=== PATIENT | male | born 1990 | race Caucasian/White ===

== ENCOUNTER 2018-08-11 21:17 | Emergency (ER) | payer SELFPAY ==
[~2018-08-11] VITALS: Ht 177.8 cm; Wt 110.2 kg
[2018-08-11 21:30] VITALS: Ht 177.8 cm; Wt 110.2 kg
[2018-08-11 22:04] LABS: BASOPHIL % 0.7 % (0-2); PLATELET COUNT 323 x10^3mcL (130-400); RED CELL DISTRIBUTION WIDTH 13.6 % (11.5-14.5)
[2018-08-11 22:07] LABS: CALCIUM 8.8 mg/dL (8.5-10.1); CARBON DIOXIDE 28.8 mmol/L (21-32); CHLORIDE SERUM 103 mmol/L (98-107); CREATININE SERUM 1.1 mg/dL (0.7-1.3); GFR1 > 60 mL/min; GLUCOSE SERUM 101 mg/dL (74-106); POTASSIUM SERUM 3.6 mmol/L (3.5-5.1); SODIUM SERUM 140 mmol/L (136-145)
[2018-08-11 22:14] LABS: ALBUMIN 4.2 g/dL (3.4-5.0); ALKALINE PHOSPHATASE 99 U/L (46-116); ALT/SGPT 51 U/L (16-63); AMYLASE 54 U/L (25-115); AST/SGOT 27 U/L (15-37); BILIRUBIN TOTAL 0.46 mg/dL (0.20-1.00); LIPASE 135 IU/L (73-393); TOTAL PROTEIN, SERUM 8.1 g/dL (6.4-8.2)
[2018-08-11 23:26] VITALS: BP 124/74
== END 2018-08-11 23:26 | disposition home or self-care (01) ==
LOC: ED 21:17
PROVIDERS: Emergency Medicine
DX: N23 Unspecified renal colic (principal); R11.2 Nausea with vomiting, unspecified
CPT/HCPCS: J1885; J2405; J7030

== ENCOUNTER 2018-12-16 21:45 | Emergency (ER) | payer SELFPAY ==
[~2018-12-16] VITALS: Ht 177.8 cm; Wt 102.5 kg
[2018-12-16 22:15] VITALS: Ht 177.8 cm; Wt 102.5 kg
[2018-12-16 23:56] LABS: BASOPHIL % 0.5 % (0-2); PLATELET COUNT 304 x10^3mcL (130-400); RED CELL DISTRIBUTION WIDTH 13.3 % (11.5-14.5)
[2018-12-17 00:12] LABS: ALKALINE PHOSPHATASE 88 U/L (46-116); ALT/SGPT 27 U/L (16-63); AST/SGOT 17 U/L (15-37); BILIRUBIN TOTAL 0.3 mg/dL (0.20-1.00); CALCIUM 8.8 mg/dL (8.5-10.1); CARBON DIOXIDE 27.4 mmol/L (21-32); CHLORIDE SERUM 102 mmol/L (98-107); CREATININE SERUM 1.2 mg/dL (0.7-1.3); GFR1 > 60 mL/min; GLUCOSE SERUM 96 mg/dL (74-106); POTASSIUM SERUM 3.9 mmol/L (3.5-5.1); SODIUM SERUM 137 mmol/L (136-145); TOTAL PROTEIN, SERUM 7.4 g/dL (6.4-8.2)
[2018-12-17 00:56] VITALS: BP 128/71
== END 2018-12-17 00:56 | disposition home or self-care (01) ==
LOC: ED 21:45
PROVIDERS: Emergency Medicine
DX: H83.09 Labyrinthitis, unspecified ear (principal)
CPT/HCPCS: 36415

== ENCOUNTER 2019-08-14 11:20 | Emergency (ER) | payer MEDICAID ==
[~2019-08-14] VITALS: Ht 177.8 cm; Wt 107.0 kg
[2019-08-14 11:28] VITALS: Ht 177.8 cm; Wt 107.0 kg
[2019-08-14 12:27] LABS: BASOPHIL % 0.3 % (0-2); PLATELET COUNT 252 x10^3mcL (130-400); RED CELL DISTRIBUTION WIDTH 13.6 % (11.5-14.5)
[2019-08-14 12:35] LABS: CALCIUM 8.9 mg/dL (8.5-10.1); CHLORIDE SERUM 103 mmol/L (98-107); CREATININE SERUM 0.9 mg/dL (0.7-1.3); GFR1 > 60 mL/min; GLUCOSE SERUM 92 mg/dL (74-106); POTASSIUM SERUM 4.3 mmol/L (3.5-5.1); SODIUM SERUM 139 mmol/L (136-145)
[2019-08-14 12:40] LABS: ALBUMIN 4.1 g/dL (3.4-5.0); ALKALINE PHOSPHATASE 104 U/L (46-116); ALT/SGPT 80 U/L (16-63); AST/SGOT 43 U/L (15-37); BILIRUBIN TOTAL 0.29 mg/dL (0.20-1.00); LIPASE 213 IU/L (73-393); TOTAL PROTEIN, SERUM 7.9 g/dL (6.4-8.2)
[2019-08-14 14:04] VITALS: BP 134/85
== END 2019-08-14 14:04 | disposition home or self-care (01) ==
LOC: ED 11:20
PROVIDERS: Emergency Medicine
DX: K29.00 Acute gastritis without bleeding (principal); Z87.442 Personal history of urinary calculi; Z98.890 Other specified postprocedural states
CPT/HCPCS: 36415; Q0092

== ENCOUNTER 2019-09-28 16:24 | Emergency (ER) | payer MEDICAID ==
[~2019-09-28] VITALS: Ht 177.8 cm; Wt 107.5 kg
[2019-09-28 16:43] VITALS: Ht 177.8 cm; Wt 107.5 kg
[2019-09-28 17:47] VITALS: BP 140/75
== END 2019-09-28 17:47 | disposition home or self-care (01) ==
LOC: ED 16:24
DX: R10.30 Lower abdominal pain, unspecified (principal); Z87.442 Personal history of urinary calculi; Z98.890 Other specified postprocedural states

== ENCOUNTER 2019-10-18 15:08 | Emergency (ER) | payer OTHER ==
[~2019-10-18] VITALS: Ht 172.7 cm; Wt 111.6 kg
[2019-10-18 15:11] VITALS: Ht 172.7 cm; Wt 111.6 kg
[2019-10-18 18:18] VITALS: BP 129/72
== END 2019-10-18 18:18 | disposition home or self-care (01) ==
LOC: ED 15:08
DX: M54.42 Lumbago with sciatica, left side (principal); Z87.442 Personal history of urinary calculi; Z98.890 Other specified postprocedural states
CPT/HCPCS: 99406

== ENCOUNTER 2019-11-11 12:21 | Emergency (ER) | payer OTHER ==
[2019-11-11 13:31] VITALS: Ht 167.6 cm
[2019-11-11 14:10] LABS: UA SPECIFIC GRAVITY 1.015 (1.005-1.035); microscopic required? YES; urine erythrocyte NEGATIVE (NEGATIVE)
[2019-11-11 17:35] VITALS: BP 109/89
== END 2019-11-11 17:36 | disposition home or self-care (01) ==
LOC: ED 12:21
PROVIDERS: Emergency Medicine
DX: M54.9 Dorsalgia, unspecified (principal); R10.9 Unspecified abdominal pain; Z87.442 Personal history of urinary calculi
CPT/HCPCS: J1885

== ENCOUNTER 2019-12-11 10:00 | Emergency (ER) | payer OTHER ==
[~2019-12-11] VITALS: Ht 177.8 cm; Wt 110.7 kg
[2019-12-11 10:22] VITALS: Ht 177.8 cm; Wt 110.7 kg
[2019-12-11 11:36] LABS: CALCIUM 8.4 mg/dL (8.5-10.1); CARBON DIOXIDE 30.4 mmol/L (21-32); CHLORIDE SERUM 102 mmol/L (98-107); CREATININE SERUM 0.8 mg/dL (0.7-1.3); GFR1 > 60 mL/min; GLUCOSE SERUM 94 mg/dL (74-106); POTASSIUM SERUM 3.8 mmol/L (3.5-5.1); SODIUM SERUM 140 mmol/L (136-145)
[2019-12-11 11:40] LABS: ALBUMIN 4.1 g/dL (3.4-5.0); ALKALINE PHOSPHATASE 78 U/L (46-116); ALT/SGPT 43 U/L (16-63); AST/SGOT 21 U/L (15-37); BILIRUBIN TOTAL 0.4 mg/dL (0.20-1.00); TOTAL PROTEIN, SERUM 7.7 g/dL (6.4-8.2)
[2019-12-11 12:04] LABS: BASOPHIL % 0.4 % (0-2); PLATELET COUNT 253 x10^3mcL (130-400); RED CELL DISTRIBUTION WIDTH 13.4 % (11.5-14.5)
[2019-12-11 12:42] VITALS: BP 141/62
== END 2019-12-11 12:42 | disposition home or self-care (01) ==
LOC: ED 10:00
PROVIDERS: Emergency Medicine
DX: R10.30 Lower abdominal pain, unspecified (principal); Z87.442 Personal history of urinary calculi
CPT/HCPCS: 36415

== ENCOUNTER 2020-02-16 20:40 | Emergency (ER) | payer OTHER ==
[~2020-02-16] VITALS: Ht 180.3 cm; Wt 114.8 kg
[2020-02-16 20:45] VITALS: Ht 180.3 cm; Wt 114.8 kg
[2020-02-16 21:57] VITALS: BP 121/80
== END 2020-02-16 21:57 | disposition home or self-care (01) ==
LOC: ED 20:40
DX: R07.89 Other chest pain (principal); R10.9 Unspecified abdominal pain; Z98.890 Other specified postprocedural states
CPT/HCPCS: J1885

== ENCOUNTER → 2020-02-22 | Outpatient (CLI) | payer OTHER ==
[2020-02-22 15:34] LABS: microscopic required? NO
[2020-02-22 15:40] LABS: UA SPECIFIC GRAVITY 1.015 (1.005-1.035); urine erythrocyte NEGATIVE (NEGATIVE)
== END | disposition home or self-care (01) ==
LOC: LB 14:52
DX: R10.9 Unspecified abdominal pain (principal)

== ENCOUNTER 2020-03-01 15:34 | Emergency (ER) | payer OTHER ==
[~2020-03-01] VITALS: Ht 180.3 cm; Wt 113.4 kg
[2020-03-01 15:46] VITALS: Ht 180.3 cm; Wt 113.4 kg
[2020-03-01 17:04] VITALS: BP 120/67
== END 2020-03-01 17:04 | disposition home or self-care (01) ==
LOC: ED 15:34
DX: G44.209 Tension-type headache, unspecified, not intractable (principal); R07.89 Other chest pain; Z87.442 Personal history of urinary calculi
CPT/HCPCS: J1885

== ENCOUNTER 2020-05-28 15:39 | Emergency (ER) | payer OTHER ==
[~2020-05-28] VITALS: Ht 180.3 cm; Wt 112.5 kg
[2020-05-28 15:46] VITALS: Ht 180.3 cm; Wt 112.5 kg
[2020-05-28 16:14] LABS: PLATELET COUNT 275 x10^3mcL (130-400); RED CELL DISTRIBUTION WIDTH 13.7 % (11.5-14.5)
[2020-05-28 16:24] LABS: CARBON DIOXIDE 34.7 mmol/L (21-32); CHLORIDE SERUM 103 mmol/L (98-107); CREATININE SERUM 1.1 mg/dL (0.7-1.3); GFR1 > 60 mL/min; GLUCOSE SERUM 109 mg/dL (74-106); POTASSIUM SERUM 3.7 mmol/L (3.5-5.1); SODIUM SERUM 140 mmol/L (136-145)
[2020-05-28 16:27] LABS: BAND NEUTROPHIL 2 % (0-10); MONOCYTE 6 % (0-7); PLATELET MORPHOLOGY PLATELETS NORMAL; SEGMENTED NEUTROPHILS 56 % (37-75); rbc morphology (normal/abnorm) NORMAL (NORMAL)
[2020-05-28 16:28] LABS: ALBUMIN 4.1 g/dL (3.4-5.0); ALKALINE PHOSPHATASE 82 U/L (46-116); ALT/SGPT 44 U/L (16-63); AST/SGOT 24 U/L (15-37); BILIRUBIN TOTAL 0.5 mg/dL (0.20-1.00); LIPASE 138 IU/L (73-393); TOTAL PROTEIN, SERUM 7.5 g/dL (6.4-8.2)
[2020-05-28 16:48] VITALS: BP 135/80
== END 2020-05-28 16:50 | disposition home or self-care (01) ==
LOC: ED 15:39
PROVIDERS: Emergency Medicine
DX: R10.13 Epigastric pain (principal)

== ENCOUNTER 2020-05-30 11:08 | Emergency (ER) | payer OTHER ==
[~2020-05-30] VITALS: Ht 180.3 cm; Wt 111.6 kg
[2020-05-30 11:16] VITALS: BP 132/71; Ht 180.3 cm; Wt 111.6 kg
== END 2020-05-30 12:26 | disposition home or self-care (01) ==
LOC: ED 11:08
DX: K29.70 Gastritis, unspecified, without bleeding (principal); K58.9 Irritable bowel syndrome, unspecified; Z98.890 Other specified postprocedural states; Z87.442 Personal history of urinary calculi

== ENCOUNTER 2020-06-04 15:02 | Emergency (ER) | payer OTHER ==
[~2020-06-04] VITALS: Ht 180.3 cm; Wt 112.5 kg
[2020-06-04 15:19] VITALS: Ht 180.3 cm; Wt 112.5 kg
[2020-06-04 16:10] LABS: BASOPHIL % 0.4 % (0-2); PLATELET COUNT 242 x10^3mcL (130-400); RED CELL DISTRIBUTION WIDTH 13.3 % (11.5-14.5)
[2020-06-04 16:28] LABS: CARBON DIOXIDE 27.7 mmol/L (21-32); CHLORIDE SERUM 102 mmol/L (98-107); GFR1 > 60 mL/min; GLUCOSE SERUM 87 mg/dL (74-106); POTASSIUM SERUM 3.8 mmol/L (3.5-5.1); SODIUM SERUM 139 mmol/L (136-145)
[2020-06-04 16:33] LABS: ALBUMIN 4.1 g/dL (3.4-5.0); ALKALINE PHOSPHATASE 84 U/L (46-116); ALT/SGPT 48 U/L (16-63); AST/SGOT 30 U/L (15-37); BILIRUBIN TOTAL 0.6 mg/dL (0.20-1.00); LIPASE 100 IU/L (73-393); TOTAL PROTEIN, SERUM 7.4 g/dL (6.4-8.2)
[2020-06-04 17:14] LABS: microscopic required? NO
[2020-06-04 18:00] VITALS: BP 92/56
[2020-06-04 18:13] LABS: UA SPECIFIC GRAVITY 1.025 (1.005-1.035); urine erythrocyte NEGATIVE (NEGATIVE)
== END 2020-06-04 18:00 | disposition home or self-care (01) ==
LOC: ED 15:02
PROVIDERS: Emergency Medicine
DX: R10.11 Right upper quadrant pain (principal); Z87.442 Personal history of urinary calculi; Z98.890 Other specified postprocedural states
CPT/HCPCS: J1885; J2405; Q0092

== ENCOUNTER 2020-07-15 06:05 | Day surgery (SDC) | payer OTHER ==
[~2020-07-15] VITALS: Ht 180.3 cm; Wt 111.6 kg
[2020-07-15 06:34] VITALS: BP 136/76
[2020-07-15 14:50] VITALS: BP 140/69
== END 2020-07-15 09:35 | disposition home or self-care (01) ==
LOC: DS 06:05 → OR 07:30 → DS 07:30
PROVIDERS: ATTEND Internal Medicine
DX: K62.5 Hemorrhage of anus and rectum (principal); D12.3 Benign neoplasm of transverse colon; K29.50 Unspecified chronic gastritis without bleeding; K21.9 Gastro-esophageal reflux disease without esophagitis; K27.9 Peptic ulcer, site unspecified, unspecified as acute or chronic, without hemorrhage or perforation
CPT/HCPCS: 43235; 45378; J1200; J1610; J2250; J2310; J3010; J3490; U0003

== ENCOUNTER 2020-08-20 15:19 | Emergency (ER) | payer OTHER ==
[~2020-08-20] VITALS: Ht 180.3 cm; Wt 110.2 kg
[2020-08-20 15:32] VITALS: Ht 180.3 cm; Wt 110.2 kg
[2020-08-20 17:32] LABS: BASOPHIL % 0.4 % (0-2); PLATELET COUNT 269 x10^3mcL (130-400); RED CELL DISTRIBUTION WIDTH 13.7 % (11.5-14.5)
[2020-08-20 17:50] LABS: CALCIUM 8.8 mg/dL (8.5-10.1); CARBON DIOXIDE 31.4 mmol/L (21-32); CHLORIDE SERUM 102 mmol/L (98-107); CREATININE SERUM 0.9 mg/dL (0.7-1.3); GFR1 > 60 mL/min; GLUCOSE SERUM 95 mg/dL (74-106); POTASSIUM SERUM 3.9 mmol/L (3.5-5.1); SODIUM SERUM 138 mmol/L (136-145)
[2020-08-20 17:55] LABS: ALKALINE PHOSPHATASE 108 U/L (46-116); ALT/SGPT 96 U/L (16-63); AST/SGOT 47 U/L (15-37); BILIRUBIN TOTAL 0.4 mg/dL (0.20-1.00); LIPASE 99 IU/L (73-393); TOTAL PROTEIN, SERUM 7.4 g/dL (6.4-8.2)
[2020-08-20 18:22] VITALS: BP 110/78
== END 2020-08-20 18:22 | disposition home or self-care (01) ==
LOC: ED 15:19
PROVIDERS: Emergency Medicine
DX: R10.11 Right upper quadrant pain (principal); Z87.442 Personal history of urinary calculi; Z98.890 Other specified postprocedural states

== ENCOUNTER → 2020-10-19 | Outpatient (CLI) | payer OTHER | END | disposition home or self-care (01) | LOC: LB 08:31 | PROVIDERS: ATTEND Internal Medicine | DX: K21.9 Gastro-esophageal reflux disease without esophagitis (principal); K29.00 Acute gastritis without bleeding | CPT/HCPCS: 83013 ==